=== PATIENT | female | born 1940 | race Caucasian/White ===

== ENCOUNTER 2016-06-23 17:20 | Emergency (ER) | payer MEDICARE ==
[~2016-06-23] VITALS: Ht 172.7 cm; Wt 75.0 kg
--- NOTE | 2016-06-23 17:35 | ED.REPORT ---
HPI-Chest Pain 40 and Over Date of Service June 23, 2016 ED Provider: Harjit Robertson MD History of Present Illness: The chief complaint is listed as rapid heart rate-however there is no template for palpitations in the system, so this template was used A 76 year old female with a history of SVT diagnosis in 2013 and anxiety is brought to the ED via EMS due to rapid heart rate. The pt was working outside at 15:10 when she noticed palpitations. She took a Lorazepam medication and diltiazem but this did not immediately relieve her symptoms. The pt checked her blood pressure at that time, which was 170, and her heart rate was 147. The pt has been experiencing intermittent palpitations for several days. These episodes were controlled fairly quickly but the episode today was not. She denies chest pain, but states that she experienced slight chest pressure. This pressure did not radiate and she denies diaphoresis, cough, chills, fever or lightheadedness. The pt takes 240 mg long acting diltiazem daily, which was increased from her original dose two weeks ago. She has not been taking aspirin lately. The pt has an appointment on 06/25/2016 at [facility] to review the results of a recent holter monitor exam and echocardiogram. Nursing Notes Stated Complaint: RAPID HEART RATE Chief Complaint: Dysrhythmia/Cardiac Nursing Notes Reviewed: Yes ([employer], meds not reconciled) General Time Seen by MD: 17:33 Chief Complaint Other (Palpitations) Hx Obtained From: Patient, EMS Arrived By: Ambulance Sudden in Onset?: Yes Onset Occurred: 1 - 4 hours ago Recent Healthcare: No recent hospitalization, Recent doctor visit Similar Sx Previous: Yes Past Medical History Past Medical History Notes: Meds: Diltiazem 240 mg XL daily (note: This is an increase from 120 mg XL daily 2 weeks ago in the end of May 2016) Lorazepam Thyroid replacement Aspirin-patient's not taking, she just does not like taking medications she says An unknown statin Past Medical History SVT, diagnosed 2013 anxiety Hypothyroidism Mild hyperlipidemia Denies: Bleeding disorder, Coronary artery disease, Diabetes mellitus, Hypertension, Peptic ulcer disease Denies: Atrial fibrillation, Atrial flutter, IV Drug use Past Surgical History none reported Smoking History Never Smoker Social History Alcohol Use: Denies alcohol use Other Social History: Good social support, Ambulatory Status Independent Review of Systems Review of Systems Note: chest pressure Constitutional: Denies: Chills, Fever Respiratory: Denies: Non-productive cough, Shortness of breath Cardiovascular: Reports: Palpitations, Denies: Chest pain GI: Denies: Vomiting Skin: Denies Diaphoresis, Denies Rash Neurologic: Denies: Lightheaded Complete sys rev & neg: except as marked. Physical Exam Initial Vital Signs Vital Signs (First) Date Time Temp Pulse Resp B/P Pulse Ox O2 Delivery O2 Flow Rate FiO2 06/23/16 17:38 36.7 87 19 144/68 98 Room Air Initial VS: Reviewed, Unavailable (none on chart, ordered) General/Constitutional: Awake, Alert Respiratory / Chest: Atraumatic, Breath sounds NL, Breath sounds = bilat, No respiratory distress Cardiovascular: Heart rate NL, Regular rhythm, Heart sounds NL Abdomen: Atraumatic, Soft, Non-tender Neck: Atraumatic, Supple, Full range of motion Back: Atraumatic, Full range of motion Lower Extremity / Pelvis / MS: Atraumatic, Full range of motion Skin: Atraumatic, Color NL, No rash, Warm, Dry Neurologic: Oriented X3, Speech NL, No motor deficits, No sensory deficits Psychiatric: Affect NL, Mood NL Head / Eyes: Atraumatic, Normocephalic, PERRL, EOMI ENT: Atraumatic, Airway patent, Mucous membranes moist Upper Extremity / MS: Atraumatic, Full range of motion Interpretation & Diagnostics Lab Results Interpretation Result Diagram: 06/23/16 1756 06/23/16 1756 Test 06/23/16 17:40 06/23/16 17:56 Hold Urine Received (Received) White Blood Count 5.3th/mm3 (3.8-10.1) Red Blood Count 4.68mil/mm3 (3.90-5.20) Hemoglobin 13.9g/dL (12.0-15.6) Hematocrit 41.7% (35.0-46.0) Mean Corpuscular Volume 89.1fL (81-100) Mean Corpuscular Hemoglobin 29.7pg (27.0-35.0) Mean Corpuscular Hemoglobin Concent 33.3% (32.0-37.0) Red Cell Distribution Width 12.9% (12.3-15.4) Platelet Count 160bil/L (150-400) Neutrophils (%) (Auto) 70.0% (40-74) Lymphocytes (%) (Auto) 20.8% (14-46) Monocytes (%) (Auto) 7.7% (4-12) Eosinophils (%) (Auto) 1.1% (0-5) Basophils (%) (Auto) 0.2% (0-3) Sodium Level 142mEq/L (134-144) Potassium Level 3.5mEq/L (3.5-5.2) Chloride Level 103mEq/L (97-108) Carbon Dioxide Level 25mmol/L (18-29) Blood Urea Nitrogen 13mg/dL (8-27) Creatinine 0.68mg/dL (0.57-1.00) Estimat Glomerular Filtration Rate 120mL/min (>59) Glucose Level 142mg/dL (60-99) Calcium Level 9.8mg/dL (8.5-10.1) Magnesium Level 2.0mg/dL (1.6-2.6) Total Bilirubin 0.3mg/dL (0.0-1.2) Aspartate Amino Transf (AST/SGOT) 24U/L (0-50) Alanine Aminotransferase (ALT/SGPT) 15U/L (0-32) Alkaline Phosphatase 72U/L (25-165) Troponin T < 0.010ug/L (0.0-0.011) Total Protein 7.2g/dL (6.4-8.4) Albumin 4.4g/dL (3.4-5.0) Thyroid Stimulating Hormone (TSH) 1.590uIU/mL (0.450-4.500) Hold Persaud Top Tube Received (Received) Lab Results Interpretation: CBC normal CMP normal (potassium low end of normal, so given 20MEq K PO x1) Magnesium normal TSH normal Troponin negative-no features indicate an acute coronary syndrome and need for serial cardiac markers ECG Interpretation ECG Interpretation: normal sinus rhythm with a rate of 72 probable anteroseptal infarct, old Time: 17:57 Interpreted by: ED physician Re-Eval/Medical Decision Med Decision/Clinical Course This is a pleasant 76-year-old female is had intermittent problems over the years with diagnosis of supraventricular tachycardia, who presents complaining of an episode today. She reports in the past couple months she has had several episodes, and [place] she was just seen by a director of cardiology several weeks ago, at that point underwent a workup that included an echocardiogram, Holter monitor, and additional studies for which she has follow-up for these results scheduled in 2 days of Brynn José. At that time the patient's routine diltiazem that she takes try and prevent episodes of SVT was increased from 120 mg extended release daily to 240 mg daily. She Reports she has been doing okay with a couple minor episodes of transient palpitations, but then today starting around 3 PM and had persistent palpitations and a rapid heart rate-but no chest pain, no syncope, no diaphoresis or high features. She tried taking antianxiety medicine lorazepam, and a sigmoid ahead and took 120 mg of her 240 mg dose of diltiazem this afternoon she normally takes in the evening. However symptoms persist (it was pointed out the patient she took the extended release version which would unlikely to have much in terms of an immediate effect) so she went to the local fire station have her heart rate checked, it was elevated, EMS came and found her in SVT. They administered adenosine and diltiazem with conversion to a normal sinus rhythm and the patient arrives asymptomatic. EMS did not leave EKGs that the nurses are aware of for me to review. EKG here demonstrates a normal sinus rhythm, no oxygenation syndrome, no acute ischemia, there are some Q waves anteriorly of uncertain significance-no prior EKGs available for comparison. The patient has used Valsalva maneuvers with ice bath is referred technique in the past. The so I have indicated she could consider the new modified Valsalva maneuver and I have provided information on [email or web address] to watch the video on how best to do this. This stage the patient's dysrhythmia has been managed. There are no clinical features to suggest acute cord syndrome. The plan is to check her electrolytes and thyroid-she is on thyroid replacement. Operative procedures recently had her medications increased, and symptoms have resolved-and she started had extensive cardiac workup I am not finding indication that admission is warranted and the plan is discharge with her to keep her appointment for follow-up in 2 days. Patient's couple with this plan. Source of Hx: Old records (none in EMR), EMS Time of Eval: 17:33 Patient Status: Condition improved Re-Evaluation/Progress Note: Pt informed of the plan for discharge pending normal labs and x-rays. The pt understands and agrees with the plan. All questions are addressed at this time. Differential Diagnosis: Positive: Dysrhythmia (SVT), Negative: Acute coronary syndrome, Acute myocardial infarct, Chest pain, acute, Congestive heart failure, Gun shot wound chest, Myocarditis, Pericarditis , Pneumothorax, Pulmonary edema, Pulmonary embolism Counseled Regarding: Diagnosis, Lab results, Need for follow-up, When/why to return to ED Discharge & Departure Primary Impression: Supraventricular tachycardia Disposition: Home Discharge Condition All VS Reviewed: Yes Condition: Stable Additional Instructions: 1. Your described another episode of SVT today. 2. This point, particularly given your medications were just increased 2 weeks ago, I do not recommend changing her medications at this time. Continue your current diltiazem dose (go ahead and take the remaining 120 mg extended-release dose that he would normally take this evening). 3. Keep the appointment with Brynn José this Friday for follow-up from a recent cardiology evaluation, and at that point he can discuss a) pursuing and ablation and b) being prescribed a short acting, immediate release diltiazem That you could take when/if symptoms occur as taking the extended release version as an immediate treatment does not work as well. 4. In terms of the Valsalva maneuvers that can be used to break in episode of SVT, current recommendations are to use something called a "modified Valsalva maneuver". I watched a two-minute video on how this is done on Youtube at: https://www.youtube.com/watch?v=8DIRiOA_OsA (or google "Modified Valsalva manoeuvre for supraventricular tachycardia") and use the syringe variant that they describe with the help of your lifting her feet. 5. Return if new or worsening symptoms occur. Referrals: [facility] Scribe Attestation Portions of this note were transcribed by Stephanie Swanson. I, Dr. Robertson personally performed the history, physical exam and medical decision-making; I reviewed and confirmed the accuracy of the information in the transcribed note. Signed by: Deya Rock, 06/23/2016 and 1802. copies to: [facility] Harjit Robertson MD June 23, 2016 17:35 STEPHANIE SWANSON June 23, 2016 17:44
[2016-06-23 17:38] VITALS: BP 144/68; PULSE 87; RESP 19; O2SAT 98
[2016-06-23 18:15] LABS: BASOPHILS % (AUTO) 0.2 % (0-3); EOSINOPHILS % (AUTO) 1.1 % (0-5); MONOCYTES % (AUTO) 7.7 % (4-12); Mean Corpuscular Hemoglobin 29.7 pg (27.0-35.0); Mean Corpuscular Volume 89.1 fL (81-100); Platelet Count 160 bil/L (150-400)
--- NOTE | 2016-06-23 18:26 | DRSVH ---
PROCEDURE: X-RAY CHEST ONE VIEW, PORTABLE ([id number]) INDICATIONS: chest pain TECHNIQUE: One view of the chest was acquired. COMPARISON: None. FINDINGS: Surgical changes and devices: None. Lungs and pleura: No pleural effusions or pneumothorax. Lungs are clear. Mediastinum: Mediastinal contours appear normal. Heart size is normal. Bones and chest wall: No suspicious bony lesions. Overlying soft tissues appear unremarkable. IMPRESSION: No acute process. Dictated by: Karen Vera M.D. on 06/23/2016 at 18:24 Approved by: Karen Vera M.D. on 06/23/2016 at 18:24
[2016-06-23 18:32] LABS: TROPONIN T < 0.010 ug/L (0.0-0.011)
[2016-06-23] MEDS ORDERED: Potassium Chloride 20 mEq SR Tablet PO ONE (19:45)
[2016-06-23 19:56] VITALS: BP 110/58; PULSE 68; RESP 19; O2SAT 96
== END 2016-06-23 19:57 | disposition home or self-care (01) ==
LOC: EDBD 17:20 → SED 17:20
DX: I47.1 Supraventricular tachycardia (principal); E78.5 Hyperlipidemia, unspecified; E03.9 Hypothyroidism, unspecified